=== PATIENT | male | born 1985 ===

== ENCOUNTER 2020-07-25 14:23 | Observation (INO) | payer SELFPAY ==
[2020-07-25] MEDS ORDERED: SODIUM CHLORIDE 0.9% 1000 ML IV SOLN IV ONE (14:39)
[2020-07-25] MEDS ORDERED: PIPERACIL/TAZOBACTA 4.5/NS 100 4.5 GM/100 ML VIAL IV ONE (14:40)
[2020-07-25] MEDS ORDERED: MORPHINE 4 MG/1 ML INJ IV ONE (14:41)
[2020-07-25] MEDS ORDERED: ONDANSETRON 4 MG/2 ML INJ IV ONE (14:41)
--- NOTE | 2020-07-25 14:45 | Emergency Department Report ---
<MOISÉS EDDY - Last Filed: 07/25/20 14:41> ED Abdominal Pain HPI - General Chief Complaint: Abdominal Pain Stated Complaint: APPENDICITIS Time Seen by Provider: 07/25/20 14:39 Source: patient, family Mode of arrival: Stretcher Limitations: Language Barrier - History of Present Illness Initial Comments: pts friend used for panamanian interpretation with the patients permission pt is a 35 yo male who presents to the ED with c/o RLQ abd pain that began three days ago and worsened today. he has associated diarrhea. he states he is also having pain in the right testicle. he denies any n/v, constipation, urinary symptoms, penile discharge. he states he has not been sexually active recently. no pmhx. no allergies to meds. no past surgical history. - Related Data Allergies Allergy/AdvReac Type Severity Reaction Status Date / Time No Known Allergies Allergy Verified 07/25/20 15:35 ED Review of Systems Comment: All other systems reviewed and negative ED Past Medical Hx - Past Medical History Previous Medical History?: No - Surgical History Past Surgical History?: No - Social History Smoking Status: Never Smoker Substance Use Type: Alcohol ED Physical Exam - General Limitations: Language Barrier General appearance: alert, in no apparent distress - Head Head exam: Present: atraumatic, normocephalic - Eye Eye exam: Present: normal appearance - ENT ENT exam: Present: mucous membranes moist - Respiratory Respiratory exam: Present: normal lung sounds bilaterally. Absent: respiratory distress, wheezes, rales, rhonchi, stridor, chest wall tenderness, accessory muscle use, decreased breath sounds, prolonged expiratory - Cardiovascular Cardiovascular Exam: Present: normal rhythm, tachycardia, normal heart sounds. Absent: systolic murmur, diastolic murmur, rubs, gallop - GI/Abdominal GI/Abdominal exam: Present: soft, distended (mildly), tenderness (RLQ), guarding (voluntary), normal bowel sounds. Absent: rebound, rigid - exam: Present: other (storage worker: Markus, tien, normal testicular lie, no scrotal edema, no erythema, no increased warmth, no induration, no palpable masses, no testicular ttp, no epididmyal ttp or edema, normal cremasteric reflex) - Neurological Exam Neurological exam: Present: alert, oriented X3 - Psychiatric Psychiatric exam: Present: normal affect, normal mood - Skin Skin exam: Present: warm, dry, intact ED Disposition Clinical Impression: Systemic inflammatory response syndrome, Acute abdominal pain in right lower quadrant, Acute perforated appendicitis, Bilateral hydrocele Testicular pain, unspecified Qualifiers: Laterality: right Qualified Code(s): N50.811 - Right testicular pain Disposition: OP ADMIT IP TO THIS HOSP Condition: Serious Referrals: PRIMARY CARE, [Primary Care Provider] - 3-5 Days <KALEY PETERSON - Last Filed: 07/25/20 17:06> ED Review of Systems ROS: Stated complaint: APPENDICITIS Other details as noted in HPI ED Course Vital Signs 07/25/20 07/25/20 07/25/20 14:29 15:34 15:46 Temperature 102.2 F H Pulse Rate 107 H 88 Respiratory 16 16 16 Rate Blood Pressure 159/85 Blood Pressure 138/80 [Left] O2 Sat by Pulse 98 99 97 Oximetry 07/25/20 16:57 Temperature Pulse Rate 84 Respiratory 16 Rate Blood Pressure Blood Pressure 130/75 [Left] O2 Sat by Pulse 97 Oximetry - Reevaluation(s) Reevaluation #1: 07/25/20 16:59 CT scan shows perforated appendicitis. Testicular ultrasound unremarkable. Patient resting comfortably. We have placed a page out to general surgery on-call, to discuss the patient's plan of care. Reevaluation #2: 07/25/20 17:04 Discussed history, physical, pertinent laboratory studies and imaging findings with general surgery on-call, Dr. Gannon. She will evaluate the patient shortly. As per this hospital's policy, procedure and protocol, patient typically gets admitted to the internal medicine service, with a surgical c onsult to follow. Therefore, this patient will be admitted to the internal medicine service. I discussed the patient's history, physical, pertinent laboratory studies and imaging findings with our internal medicine physician colleague, Dr. Crystal Lehman, Who will admit patient to the medical service. Patient updated on plan of care, and is amenable to admission/hospitalization ED Medical Decision Making - Lab Data Result diagrams: 07/25/20 14:55 07/25/20 14:55 Lab Results 07/25/20 07/25/20 07/25/20 Range/Units 14:55 14:55 14:55 WBC 11.0 (4.5-11.0) K/mm3 RBC 5.73 H (3.65-5.03) M/mm3 Hgb 17.0 H (11.8-15.2) gm/dl Hct 49.3 H (35.5-45.6) % MCV 86 (84-94) fl MCH 30 (28-32) pg MCHC 35 H (32-34) % RDW 13.8 (13.2-15.2) % Plt Count 196 (140-440) K/mm3 Lymph % (Auto) 4.9 L (13.4-35.0) % [place] % (Auto) 6.5 (0.0-7.3) % Eos % (Auto) 0.0 (0.0-4.3) % Baso % (Auto) 0.2 (0.0-1.8) % Lymph # (Auto) 0.5 L (1.2-5.4) K/mm3 [place] # (Auto) 0.7 (0.0-0.8) K/mm3 Eos # (Auto) 0.0 (0.0-0.4) K/mm3 Baso # (Auto) 0.0 (0.0-0.1) K/mm3 Seg Neutrophils % 88.4 H (40.0-70.0) % Seg Neutrophils # 9.7 H (1.8-7.7) K/mm3 Sodium 136 L (137-145) mmol/L Potassium 3.7 (3.6-5.0) mmol/L Chloride 97.6 L (98-107) mmol/L Carbon Dioxide 24 (22-30) mmol/L Anion Gap 18 mmol/L BUN 15 (9-20) mg/dL Creatinine 1.0 (0.8-1.3) mg/dL Estimated GFR > 60 ml/min BUN/Creatinine Ratio 15 % Glucose 112 H (75-100) mg/dL Lactic Acid 1.60 (0.7-2.0) mmol/L Calcium 9.4 (8.4-10.2) mg/dL Total Bilirubin 1.30 H (0.1-1.2) mg/dL AST 24 (5-40) units/L ALT 30 (7-56) units/L Alkaline Phosphatase 91 (35-129) units/L Total Creatine Kinase (55-170) units/L Total Protein 8.2 (6.3-8.2) g/dL Albumin 4.6 (3.9-5) g/dL Albumin/Globulin Ratio 1.3 % Urine Color (Yellow) Urine Turbidity (Clear) Urine pH (5.0-7.0) Ur Specific [place] (1.003-1.030) Urine Protein (Negative) mg/dL Urine Glucose (UA) (Negative) mg/dL Urine Ketones (Negative) mg/dL Urine Blood (Negative) Urine Nitrite (Negative) Urine Bilirubin (Negative) Urine Ictotest (Negative) Urine Urobilinogen (<2.0) mg/dL Ur Leukocyte Esterase (Negative) Urine WBC (Auto) (0.0-6.0) /HPF Urine RBC (Auto) (0.0-6.0) /HPF U Epithel Cells (Auto) (0-13.0) /HPF Urine Mucus /HPF 07/25/20 07/25/20 Range/Units 15:58 Unknown WBC (4.5-11.0) K/mm3 RBC (3.65-5.03) M/mm3 Hgb (11.8-15.2) gm/dl Hct (35.5-45.6) % MCV (84-94) fl MCH (28-32) pg MCHC (32-34) % RDW (13.2-15.2) % Plt Count (140-440) K/mm3 Lymph % (Auto) (13.4-35.0) % [place] % (Auto) (0.0-7.3) % Eos % (Auto) (0.0-4.3) % Baso % (Auto) (0.0-1.8) % Lymph # (Auto) (1.2-5.4) K/mm3 [place] # (Auto) (0.0-0.8) K/mm3 Eos # (Auto) (0.0-0.4) K/mm3 Baso # (Auto) (0.0-0.1) K/mm3 Seg Neutrophils % (40.0-70.0) % Seg Neutrophils # (1.8-7.7) K/mm3 Sodium (137-145) mmol/L Potassium (3.6-5.0) mmol/L Chloride (98-107) mmol/L Carbon Dioxide (22-30) mmol/L Anion Gap mmol/L BUN (9-20) mg/dL Creatinine (0.8-1.3) mg/dL Estimated GFR ml/min BUN/Creatinine Ratio % Glucose (75-100) mg/dL Lactic Acid (0.7-2.0) mmol/L Calcium (8.4-10.2) mg/dL Total Bilirubin (0.1-1.2) mg/dL AST (5-40) units/L ALT (7-56) units/L Alkaline Phosphatase (35-129) units/L Total Creatine Kinase 171 H (55-170) units/L Total Protein (6.3-8.2) g/dL Albumin (3.9-5) g/dL Albumin/Globulin Ratio % Urine Color [place] (Yellow) Urine Turbidity Slightly-cloudy (Clear) Urine pH 8.0 H (5.0-7.0) Ur Specific [place] 1.034 H (1.003-1.030) Urine Protein >500 (Negative) mg/dL Urine Glucose (UA) Neg (Negative) mg/dL Urine Ketones 20 (Negative) mg/dL Urine Blood Sm (Negative) Urine Nitrite Neg (Negative) Urine Bilirubin Sm (Negative) Urine Ictotest Negative (Negative) Urine Urobilinogen 4.0 (<2.0) mg/dL Ur Leukocyte Esterase Neg (Negative) Urine WBC (Auto) 3.0 (0.0-6.0) /HPF Urine RBC (Auto) > 182.0 (0.0-6.0) /HPF U Epithel Cells (Auto) < 1.0 (0-13.0) /HPF Urine Mucus 3+ /HPF Vital Signs 07/25/20 07/25/20 07/25/20 14:29 15:34 15:46 Temperature 102.2 F H Pulse Rate 107 H 88 Respiratory 16 16 16 Rate Blood Pressure 159/85 Blood Pressure 138/80 [Left] O2 Sat by Pulse 98 99 97 Oximetry 07/25/20 16:57 Temperature Pulse Rate 84 Respiratory 16 Rate Blood Pressure Blood Pressure 130/75 [Left] O2 Sat by Pulse 97 Oximetry - Radiology Data Radiology results: report reviewed, image reviewed CT abdomen pelvis w con INDICATION: Right testicular pain. COMPARISON: None TECHNIQUE: Abdominal and pelvic CT exam performed. All CT scans at this location are performed using CT dose reduction for ALARA by means of automated exposure control. FINDINGS: CT ABDOMEN and PELVIS: Lung Bases: No significant abnormality. Liver: No significant abnormality. Biliary: No significant abnormality. Spleen: No significant abnormality. Pancreas: No significant abnormality. Adrenals: No significant abnormality. Kidneys: No significant abno rmality. Lymphatics: No lymphadenopathy. Vasculature: No significant abnormality. Bowel: Appendicoliths with a dilated appendix and significant periappendiceal stranding. Free air is seen within the right lower quadrant adjacent to the appendix. No organized drainable collection.. Pelvis: No signifi cant abnormality. Osseous Structures: No aggressive osseous lesion. Additional Findings: None IMPRESSION: 1. Perforated appendicitis. No abscess. Signer Name: Jerlad Segovia MD Signed: 07/25/2020 3:47 PM Workstation Name: [id number] ULTRASOUND SCROTUM INDICATION / CLINICAL INFORMATION: right testicular pain. COMPARISON: None available. FINDINGS -- RIGHT TESTIS: Size = 5.3 x 2.2 x 3.8 cm. - Appearance: No significant abnormality. - Cyst or Mass: None. - Color Doppler Flow: No significant abnormality. EPIDIDYMIS: No significant abnormality. HYDROCELE: Tiny VARICOCELE: None demonstrated. FINDINGS -- LEFT TESTIS: Size = 5.1 x 2.1 x 3.4 cm. - Appearance: No significant abnormality. - Cyst or Mass: None. - Color Doppler Flow: No significant abnormality. EPIDIDYMIS: No significant abnormality. HYDROCELE: Tiny VARICOCELE: None demonstrated. ADDITIONAL FINDINGS: None. IMPRESSION: 1. No significant sonographic abnormality of the testicles. 2. Tiny bilateral hydroceles. Signer Name: Tian Ramires MD Signed: 07/25/2020 3:22 PM Workstation Name: [id number] Critical Care Time: Yes Critical care time in (mins) excluding proc time.: 35 Critical care attestation.: If time is entered above; I have spent that time in minutes in the direct care of this critically ill patient, excluding procedure time. ED Disposition Is pt being admited?: Yes Does the pt Need Aspirin: No
[2020-07-25] MEDS ORDERED: ACETAMINOPHEN 325 MG TAB PO ONE (14:46)
--- NOTE | 2020-07-25 14:50 | Event Note ---
Date of service: 07/25/20 Face to Face: For this encounter I have reviewed the PA/FUNCTIONAL CONSULTANT documentation, treatment plan, medical decision making, and I had face to face time with this patient. The patient was evaluated in the emergency department for symptoms described in the history of present illness. He/she was evaluated in the context of the global COVID-19 pandemic, which necessitated consideration that the patient might be at risk for infection with the virus that causes COVID-19. Institutional protocols and algorithms that pertain to the evaluation of patients at risk for COVID-19 are in a state of rapid change based on information released by regulatory bodies including the CDC and federal and state organizations. These policies and algorithms were followed during the patient's care in the emergency department. Please note that these policies, procedures and recommendations changed on a rapid basis. hop sorter: Energy Technician, Mr. Michael Schreiber. In addition, this provider is conversant in Italian. This is a 35-year-old gentleman presenting with suprapubic and right lower quadrant pain, fever, tachycardia, and complaint of testicular pain. Positive nausea, positive anorexia. On examination: Patient is febrile and tachycardic. Breath sounds are clear to auscultation bilaterally. Has suprapubic and bilateral quadrant lower abdominal tenderness. 2+ pulses noted in the bilateral upper and lower extremities. There is no palpable cord. negative Homans sign. Muscular compartments are soft. The pe lvis is stable. No facial droop. Tongue midline. Extraocular movements intact bilaterally. Facial sensation intact to light touch in V1, V2, V3 distribution bilaterally. 5 and a 5 strength in 4 extremities. Sensation intact to light touch in 4 extremities. There is normal testicular lie. There is normal cremasteric reflex. There is no testicular tenderness. There is no testicular swelling Suspicious for appendicitis, inflammatory bowel disease versus renal colic. Genitourinary exam benign. Patient will be treated according to the sepsis pathway, with fluids, pain medication, antibiotics, antipyretics, objective imaging studies to include CT scan of the abdomen pelvis, and testicular ultrasound. Have discussed this plan of care with the patient, who verbalized understanding, and is amenable to this plan of care. Reassess after diagnostics have resulted.
[2020-07-25 15:24] LABS: Bilirubin,Urine SM (Negative); Blood,Urine SM (Negative); Color,Urine Amber (Yellow); Mucus,Urine 3+ /HPF
[2020-07-25 15:26] LABS: Protein,Urine >500 mg/dL (Negative); RBC,Urine > 182.0 /HPF (0.0-6.0)
[2020-07-25 15:29] LABS: Basophils % (Auto) 0.2 % (0.0-1.8); Hematocrit 49.3 % (35.5-45.6); Lymphocytes # (Auto) 0.5 K/mm3 (1.2-5.4); Lymphocytes % (Auto) 4.9 % (13.4-35.0); Mean Corpuscular HGB Conc 35 % (32-34); Mean Corpuscular Volume 86 fl (84-94); Monocytes # (Auto) 0.7 K/mm3 (0.0-0.8); Monocytes % (Auto) 6.5 % (0.0-7.3); Platelet Count 196 K/mm3 (140-440); Red Blood Count 5.73 M/mm3 (3.65-5.03); Red Cell Distribution Width 13.8 % (13.2-15.2)
[2020-07-25 15:32] LABS: Ictotest,Urine Negative (Negative)
[2020-07-25 15:45] LABS: Alanine Aminotransferase 30 units/L (7-56); Albumin 4.6 g/dL (3.9-5); BUN/Creatinine Ratio 15; Blood Urea Nitrogen 15 mg/dL (9-20); Calcium 9.4 mg/dL (8.4-10.2); Hemolysis Index 3
--- NOTE | 2020-07-25 16:27 | Ultrasound Report ---
ULTRASOUND SCROTUM INDICATION / CLINICAL INFORMATION: right testicular pain. COMPARISON: None available. FINDINGS -- RIGHT TESTIS: Size = 5.3 x 2.2 x 3.8 cm. - Appearance: No significant abnormality. - Cyst or Mass: None. - Color Doppler Flow: No significant abnormality. EPIDIDYMIS: No significant abnormality. HYDROCELE: Tiny VARICOCELE: None demonstrated. FINDINGS -- LEFT TESTIS: Size = 5.1 x 2.1 x 3.4 cm. - Appearance: No significant abnormality. - Cyst or Mass: None. - Color Doppler Flow: No significant abnormality. EPIDIDYMIS: No significant abnormality. HYDROCELE: Tiny VARICOCELE: None demonstrated. ADDITIONAL FINDINGS: None. IMPRESSION: 1. No significant sonographic abnormality of the testicles. 2. Tiny bilateral hydroceles. Signer Name: Tian Ramires MD Signed: 07/25/2020 4:22 PM Workstation Name: [id number]
--- NOTE | 2020-07-25 16:51 | Cat Scan Report ---
CT abdomen pelvis w con INDICATION: Right testicular pain. COMPARISON: None TECHNIQUE: Abdominal and pelvic CT exam performed. All CT scans at this location are performed using CT dose reduction for ALARA by means of automated exposure control. FINDINGS: CT ABDOMEN and PELVIS: Lung Bases: No significant abnormality. Liver: No significant abnormality. Biliary: No significant abnormality. Spleen: No significant abnormality. Pancreas: No significant abnormality. Adrenals: No significant abnormality. Kidneys: No significant abnormality. Lymphatics: No lymphadenopathy. Vasculature: No significant abnormality. Bowel: Appendicoliths with a dilated appendix and significant periappendiceal stranding. Free air is seen within the right lower quadrant adjacent to the appendix. No organized drainable collection.. Pelvis: No significant abnormality. Osseous Structures: No aggressive osseous lesion. Additional Findings: None IMPRESSION: 1. Perforated appendicitis. No abscess. Signer Name: Jerald Segovia MD Signed: 07/25/2020 4:47 PM Workstation Name: [id number]
[2020-07-25] MEDS ORDERED: ONDANSETRON 4 MG/2 ML INJ IV PRN ×2 (17:19→21:30)
[2020-07-25] MEDS ORDERED: HYDROmorphone 1 MG/1 ML INJ IV PRN ×3 (17:19→21:30)
[2020-07-25] MEDS ORDERED: SUCCINYLCHOLINE CHLORIDE 200 MG/10 ML INJ MDV ONE (17:47)
[2020-07-25] MEDS ORDERED: propofoL 200 MG/20 ML VIAL IV ONE (17:48)
[2020-07-25] MEDS ORDERED: LIDOCAINE MPF (2%) 20 MG/1 ML VIAL 5 ML ONE (17:48)
[2020-07-25] MEDS ORDERED: fentaNYL 100 MCG/2 ML INJ ONE (17:49)
[2020-07-25] MEDS ORDERED: KETOROLAC 30 MG/1 ML INJ ONE (17:51)
--- NOTE | 2020-07-25 17:58 | Consultation ---
History of Present Illness Consult date: 07/25/20 Reason for consult: abdominal pain - History of present illness History of present illness: 35 year old male presented to ED with 3 day hx of worsening abdominal pain. It started on the right side and was 10/10 and denies nausea and vomiting. He has never had this before and had a CT scan that showed perforated appendicitis. He also complains of right testicular pain that started around the time of the abdominal pain. Past History Past Medical History: No medical history Past Surgical History: No surgical history Medications and Allergies Allergies Allergy/AdvReac Type Severity Reaction Status Date / Time No Known Allergies Allergy Verified 07/25/20 15:35 Home Medications Medication Instructions Recorded Confirmed Last Taken Type No Known Home Medications [No 07/25/20 07/25/20 Unknown History Reported Home Medications] Active Meds: Active Medications Hydromorphone HCl (Hydromorphone 1 Mg/1 Ml Inj) 0.5 mg IV Q10MIN PRN PRN Reason: Pain , Severe (7-10) Stop: 07/26/20 17:18 Hydromorphone HCl (Hydromorphone 1 Mg/1 Ml Inj) 0.25 mg IV Q10MIN PRN PRN Reason: Pain, Moderate (4-6) Stop: 07/26/20 17:18 Ondansetron HCl (Ondansetron 4 Mg/2 Ml Inj) 4 mg IV ONCE PRN PRN Reason: Nausea And Vomiting Review of Systems - Constitutional fever, poor appetite - Cardiovascular no chest pain - Respiratory no cough - Gastrointestinal abdominal pain, no nausea, no vomiting - Genitourinary testicular pain, no dysuria Exam Vital Signs Temp Pulse Resp BP Pulse Ox 102.2 F H 107 H 16 159/85 98 07/25/20 14:29 07/25/20 14:29 07/25/20 14:29 07/25/20 14:29 07/25/20 14:29 - General physical appearance Positive: well developed, well nourished - Respiratory Positive: normal expansion, normal respiratory effort - Cardiovascular Heart Sounds: Present: S1 & S2 - Abdomen Abdomen: Present: soft, other (tender to palpation RLQ, no guarding or rebound). Absent: distended Results - Labs 07/25/20 14:55 07/25/20 14:55 Abnormal lab results 07/25/20 07/25/20 07/25/20 Range/Units 14:55 14:55 15:58 RBC 5.73 H (3.65-5.03) M/mm3 Hgb 17.0 H (11.8-15.2) gm/dl Hct 49.3 H (35.5-45.6) % MCHC 35 H (32-34) % Lymph % (Auto) 4.9 L (13.4-35.0) % Lymph # (Auto) 0.5 L (1.2-5.4) K/mm3 Seg Neutrophils % 88.4 H (40.0-70.0) % Seg Neutrophils # 9.7 H (1.8-7.7) K/mm3 Sodium 136 L (137-145) mmol/L Chloride 97.6 L (98-107) mmol/L Glucose 112 H (75-100) mg/dL Total Bilirubin 1.30 H (0.1-1.2) mg/dL Total Creatine Kinase 171 H (55-170) units/L Urine pH (5.0-7.0) Ur Specific [place] (1.003-1.030) 07/25/20 Range/Units Unknown RBC (3.65-5.03) M/mm3 Hgb (11.8-15.2) gm/dl Hct (35.5-45.6) % MCHC (32-34) % Lymph % (Auto) (13.4-35.0) % Lymph # (Auto) (1.2-5.4) K/mm3 Seg Neutrophils % (40.0-70.0) % Seg Neutrophils # (1.8-7.7) K/mm3 Sodium (137-145) mmol/L Chloride (98-107) mmol/L Glucose (75-100) mg/dL Total Bilirubin (0.1-1.2) mg/dL Total Creatine Kinase (55-170) units/L Urine pH 8.0 H (5.0-7.0) Ur Specific [place] 1.034 H (1.003-1.030) Diabetes panel 07/25/20 Range/Units 14:55 Sodium 136 L (137-145) mmol/L Potassium 3.7 (3.6-5.0) mmol/L Chloride 97.6 L (98-107) mmol/L Carbon Dioxide 24 (22-30) mmol/L BUN 15 (9-20) mg/dL Creatinine 1.0 (0.8-1.3) mg/dL Glucose 112 H (75-100) mg/dL Calcium 9.4 (8.4-10.2) mg/dL AST 24 (5-40) units/L ALT 30 (7-56) units/L Alkaline Phosphatase 91 (35-129) units/L Total Protein 8.2 (6.3-8.2) g/dL Albumin 4.6 (3.9-5) g/dL Calcium panel 07/25/20 Range/Units 14:55 Calcium 9.4 (8.4-10.2) mg/dL Albumin 4.6 (3.9-5) g/dL Pituitary panel 07/25/20 Range/Units 14:55 Sodium 136 L (137-145) mmol/L Potassium 3.7 (3.6-5.0) mmol/L Chloride 97.6 L (98-107) mmol/L Carbon Dioxide 24 (22-30) mmol/L BUN 15 (9-20) mg/dL Creatinine 1.0 (0.8-1.3) mg/dL Glucose 112 H (75-100) mg/dL Calcium 9.4 (8.4-10.2) mg/dL Adrenal panel 07/25/20 Range/Units 14:55 Sodium 136 L (137-145) mmol/L Potassium 3.7 (3.6-5.0) mmol/L Chloride 97.6 L (98-107) mmol/L Carbon Dioxide 24 (22-30) mmol/L BUN 15 (9-20) mg/dL Creatinine 1.0 (0.8-1.3) mg/dL Glucose 112 H (75-100) mg/dL Calcium 9.4 (8.4-10.2) mg/dL Total Bilirubin 1.30 H (0.1-1.2) mg/dL AST 24 (5-40) units/L ALT 30 (7-56) units/L Alkaline Phosphatase 91 (35-129) units/L Total Protein 8.2 (6.3-8.2) g/dL Albumin 4.6 (3.9-5) g/dL - Imaging CT scan - abdomen: report reviewed, image reviewed CT scan - pelvis: report reviewed, image reviewed Assessment and Plan 35 year old male with perforated appendicitis. Febrile with resolution of ta chycardia after IV hydration. consent obtained with bilingual interpreter for raimundo crane. Zosyn was started. If pt does well may be able to go home as early as tomorrow.
--- NOTE | 2020-07-25 18:07 | Anesthesia Day of Surgery ---
Anesthesia Day of Surgery - Day of Surgery Patient Examined: Yes Patient H&P Reviewed: Yes Patient is NPO: Yes
--- NOTE | 2020-07-25 18:08 | Anesthesia Consultation ---
Anesthesia Consult and Med Hx Date of service: 07/25/20 - Airway Anesthetic Teeth Evaluation: Good ROM Head & Neck: Adequate Mental/Hyoid Distance: Adequate Mallampati Class: Class I Intubation Access Assessment: Good - Pre-Operative Health Status ASA Pre-Surgery Classification: ASA1, Emergency Proposed Anesthetic Plan: General - Pulmonary Hx Smoking: No - Cardiovascular System Hx Hypertension: No - Endocrine Hx Renal Disease: No Hx Liver Disease: No Hx Non-Insulin Dependent Diabetes: No - Other Systems Hx Alcohol Use: Yes Hx Obesity: No
[2020-07-25] MEDS ORDERED: LACTATED RINGERS 1,000 ML ONE (18:21)
[2020-07-25] MEDS ORDERED: ROCURONIUM 50 MG/5 ML INJ IV ONE (18:27)
[2020-07-25] MEDS ORDERED: NEOSTIGMINE 10MG/10 ML INJ MDV ONE (18:30)
[2020-07-25] MEDS ORDERED: ONDANSETRON 4 MG/2 ML INJ ONE (18:30)
[2020-07-25] MEDS ORDERED: GLYCOPYRROLATE 0.4 MG/2 ML INJ ONE (18:30)
[2020-07-25 18:31] LABS: INR 1.15 (0.87-1.13)
[2020-07-25 18:32] LABS: Partial Thromboplastin Time 35.4 Sec. (24.2-36.6)
[2020-07-25] MEDS ORDERED: dexAMETHasone 20 MG/5 ML VIAL ONE (18:35)
[2020-07-25] MEDS ORDERED: BUPIVACAINE/PF (0.5%) 5 MG/1 ML 30 ML VIAL INFILTRATI ONE (19:07)
[2020-07-25] MEDS ORDERED: LIDOCAINE (1%) 10 MG/1 ML VIAL 20 ML MDV INFILTRATI ONE (19:07)
[2020-07-25] MEDS ORDERED: SODIUM CHLORIDE 0.9% IRR 1,500 ML BOTTLE IR ONE (19:07)
[2020-07-25] MEDS ORDERED: SODIUM CHLORIDE 0.9% IRRIG SOLN 2000 ML IR ONE (19:08)
--- NOTE | 2020-07-25 20:01 | Operative Report ---
Operative Report Operative Report: Dates of Service: 07/25/2019 Primary Surgeon: Luis Gannon MD Assisted by: Amberly Gamez DO Procedure: Laparoscopic Appendectomy with drain placement Anesthesia: GETA with local Pre-Operative Diagnosis: perforated acute appendicitis Post-Operative Diagnosis: Same Indications for Procedure: 35 year old male presented to ED with a 3 day hx of worsening abdominal pain. CT scan showed perforated appendicitis. Pt signed informed consent with the help of a Divehi speaking sales service rep. Description of Procedure(s): The patient was brought to the operating room and underwent general anesthesia after lower extremity SCD were placed. The abdomen was prepped and draped in the standard fashion after a metz was placed under sterile technique. IV antibiotics were given prior to time out in the ED. Using a veress needle via a stab incision in the umbilicus, the abdomen was insuflated to a pressure of 15mmHg. Using optivew technique, a 5mm trocar was placed just superior and to the left of the umbilicus. There was no gross injury noted to any intra-abdominal structures. After which working trocars were placed under direct visualization. A 12 mm trocar was placed in left mid abdomen, and a 5 mm trocar was inserted in the suprapubic area. The patient was placed in slight Trendelenburg position and tilted towards his left side. The cecum was identified and mobilized, as well as the terminal ileum. There was noted to be a perforation in the appendix in the proximal third of the appendix. No carol pus was noted but there was fibrinous material consistent with an abscess cavity along the base of the appendix on the lateral wall. The base of the appendix was noted to be retrocecal. The mesoappendix was transected with the LigaSure. The appendix was then taken at its base with a white load on a laparoscopic stapler. One the first stable fire was made, there was noted to be a significant amount of appendix remaining buried along the lateral abdominal wall and into the cecum. The appendiceal stump was carefully dissected free and was transected free at its true base with another staple fire. The staple line was inspected and found to be hemostatically sound and secure. There was minimal irrigation of the right lower quadrant. The appendix was placed in Endo Catch bag. It was then retrieved via the 12 mm trocar. A 19Fr drain was placed into the pelvis and RLQ and exited out of the supra-pubic port site. The fascia was then closed using a #1 PDS and a suture passer device. Trocars removed under direct visualization. The insufflation was then terminated. The skin incisions were closed using 4-0 Monocryl sutures. All the wounds dressed with dermabond. The drain was secured with nylon followed by a dressing. The patient tolerated the procedure well, was extubated and taken to the recovery room in satisfactory condition. Specimen: perforated appendix, additional more proximal segment of appendix Complications: none immediate EBl: minimal Findings: as above
--- NOTE | 2020-07-25 20:10 | Post Anesthesia Evaluation ---
- Post Anesthesia Evaluation Patient Participated: Yes Airway Patent: Yes Stable Respiratory Function: Yes Nausea/Vomiting: No Temp > 96.8F: Yes Pain Manageable: Yes Adequeate Hydration: Yes Anesthesia Complications: No Block Receding Appropriately: Not Applicable Patient on Ventilator: No Other Comments: pt a+o x3. denies pain. no distres noted. resting comformtable in bed. awaiting transfer to floor.
[2020-07-25] MEDS ORDERED: SODIUM CHLORIDE 0.9% 1000 ML 1,000 ML IV SCH (20:15)
--- NOTE | 2020-07-25 21:02 | History and Physical Report ---
History of Present Illness Date of examination: 07/25/20 Date of admission: 07/25/20 17:06 Chief complaint: Acute abdominal pain for 3 days with worsening since a.m. History of present illness: 35 yo Arabic-speaking male with no significant past medical history presents to the ED with c/o RLQ abd pain that began three days ago and worsened today. He has associated diarrhea. he states he is also having pain in the right testicle. he denies any n/v, constipation, urinary symptoms, penile discharge. he states he has not been sexually active recently. no pmhx. no allergies to meds. no past surgical history. Pain is about 10 on a scale of 1-10. Confined to the right lower quadrant and radiating to the right testicle. No fever. No chills. - Past Medical History Previous Medical History?: No - Surgical History Past Surgical History?: No - Social History Smoking Status: Never Smoker Substance Use Type: Alcohol Family history noncontributory Review of Systems GI severe right lower quadrant pain and diarrhea pain is 10 on the sliding scale of 1-10 Constitutional no weight loss or weight gain no fever or chills HEENT no sore throat no post nasal drip no diplopia Neck no neck stiffness no lymph gland enlargement Chest and lungs no shortness of breath cough or wheezing CVS no chest pain no diaphoresis no palpitations Genitourinary system no dysuria no flank pain Musculoskeletal system no muscle pains no joint pains [employer] no syncope no seizures Skin no rash no itching Psychiatric no depression no homicidal or suicidal tendencies Hematologic no lymphedema or bruising Endocrine no polydipsia no polyuria no cold intolerance no heat intolerance Past History Past Medical History: No medical history Past Surgical History: No surgical history Medications and Allergies Allergies Allergy/AdvReac Type Severity Reaction Status Date / Time No Known Allergies Allergy Verified 07/25/20 15:35 Home Medications Medication Instructions Recorded Confirmed Last Taken Type No Known Home Medications [No 07/25/20 07/25/20 Unknown History Reported Home Medications] Active Meds: Active Medications Hydromorphone HCl (Hydromorphone 1 Mg/1 Ml Inj) 0.5 mg IV Q10MIN PRN PRN Reason: Pain , Severe (7-10) Stop: 07/26/20 17:18 Hydromorphone HCl (Hydromorphone 1 Mg/1 Ml Inj) 0.25 mg IV Q10MIN PRN PRN Reason: Pain, Moderate (4-6) Stop: 07/26/20 17:18 Sodium Chloride (Nacl 0.9% 1000 Ml) 1,000 mls @ 125 mls/hr IV DIRECT ALEJO Ondansetron HCl (Ondansetron 4 Mg/2 Ml Inj) 4 mg IV ONCE PRN PRN Reason: Nausea And Vomiting Exam - Constitutional Vitals: Temp Pulse Resp BP Pulse Ox 99.4 F 76 23 122/71 94 07/25/20 20:25 07/25/20 20:25 07/25/20 20:25 07/25/20 20:25 07/25/20 20:25 General appearance: Present: severe distress, well-nourished - EENT Eyes: Present: PERRL ENT: hearing intact, clear oral mucosa - Neck Neck: Present: supple, normal ROM - Respiratory Respiratory effort: normal Respiratory: bilateral: CTA - Cardiovascular Heart rate: 90 Rhythm: regular Heart Sounds: Present: S1 & S2. Absent: rub, click - Extremities Extremities: pulses symmetrical, No edema Peripheral Pulses: within normal limits - Abdominal General gastrointestinal: Present: soft, tender, non-distended, normal bowel sounds Localized gastrointestinal: tender: RLQ, guarding: RLQ, rebound: RLQ Male genitourinary: Present: normal - Integumentary Integumentary: Present: clear, warm, dry - Musculoskeletal Musculoskeletal: gait normal, strength equal bilaterally - Psychiatric Psychiatric: appropriate mood/affect, intact judgment & insight - Neurologic Neurologic: CNII-XII intact, moves all extremities Results - Labs CBC & Chem 7: 07/25/20 14:55 07/25/20 14:55 Labs: Laboratory Last Values WBC 11.0 K/mm3 (4.5-11.0) 07/25/20 14:55 RBC 5.73 M/mm3 (3.65-5.03) H 07/25/20 14:55 Hgb 17.0 gm/dl (11.8-15.2) H 07/25/20 14:55 Hct 49.3 % (35.5-45.6) H 07/25/20 14:55 MCV 86 fl (84-94) 07/25/20 14:55 MCH 30 pg (28-32) 07/25/20 14:55 MCHC 35 % (32-34) H 07/25/20 14:55 RDW 13.8 % (13.2-15.2) 07/25/20 14:55 Plt Count 196 K/mm3 (140-440) 07/25/20 14:55 Lymph % (Auto) 4.9 % (13.4-35.0) L 07/25/20 14:55 [place] % (Auto) 6.5 % (0.0-7.3) 07/25/20 14:55 Eos % (Auto) 0.0 % (0.0-4.3) 07/25/20 14:55 Baso % (Auto) 0.2 % (0.0-1.8) 07/25/20 14:55 Lymph # (Auto) 0.5 K/mm3 (1.2-5.4) L 07/25/20 14:55 [place] # (Auto) 0.7 K/mm3 (0.0-0.8) 07/25/20 14:55 Eos # (Auto) 0.0 K/mm3 (0.0-0.4) 07/25/20 14:55 Baso # (Auto) 0.0 K/mm3 (0.0-0.1) 07/25/20 14:55 Seg Neutrophils % 88.4 % (40.0-70.0) H 07/25/20 14:55 Seg Neutrophils # 9.7 K/mm3 (1.8-7.7) H 07/25/20 14:55 PT 14.7 Sec. (12.2-14.9) 07/25/20 17:33 INR 1.15 (0.87-1.13) H 07/25/20 17:33 APTT 35.4 Sec. (24.2-36.6) 07/25/20 17:33 Sodium 136 mmol/L (137-145) L 07/25/20 14:55 Potassium 3.7 mmol/L (3.6-5.0) 07/25/20 14:55 Chloride 97.6 mmol/L (98-107) L 07/25/20 14:55 Carbon Dioxide 24 mmol/L (22-30) 07/25/20 14:55 Anion Gap 18 mmol/L 07/25/20 14:55 BUN 15 mg/dL (9-20) 07/25/20 14:55 Creatinine 1.0 mg/dL (0.8-1.3) 07/25/20 14:55 Estimated GFR > 60 ml/min 07/25/20 14:55 BUN/Creatinine Ratio 15 % 07/25/20 14:55 Glucose 112 mg/dL (75-100) H 07/25/20 14:55 Lactic Acid 1.60 mmol/L (0.7-2.0) 07/25/20 14:55 Calcium 9.4 mg/dL (8.4-10.2) 07/25/20 14:55 Total Bilirubin 1.30 mg/dL (0.1-1.2) H 07/25/20 14:55 AST 24 units/L (5-40) 07/25/20 14:55 ALT 30 units/L (7-56) 07/25/20 14:55 Alkaline Phosphatase 91 units/L (35-129) 07/25/20 14:55 Total Creatine Kinase 171 units/L (55-170) H 07/25/20 15:58 Total Protein 8.2 g/dL (6.3-8.2) 07/25/20 14:55 Albumin 4.6 g/dL (3.9-5) 07/25/20 14:55 Albumin/Globulin Ratio 1.3 % 07/25/20 14:55 Urine Color [place] (Yellow) 07/25/20 Unknown Urine Turbidity Slightly-cloudy (Clear) 07/25/20 Unknown Urine pH 8.0 (5.0-7.0) H 07/25/20 Unknown Ur Specific [place] 1.034 (1.003-1.030) H 07/25/20 Unknown Urine Protein >500 mg/dL (Negative) 07/25/20 Unknown Urine Glucose (UA) Neg mg/dL (Negative) 07/25/20 Unknown Urine Ketones 20 mg/dL (Negative) 07/25/20 Unknown Urine Blood Sm (Negative) 07/25/20 Unknown Urine Nitrite Neg (Negative) 07/25/20 Unknown Urine Bilirubin Sm (Negative) 07/25/20 Unknown Urine Ictotest Negative (Negative) 07/25/20 Unknown Urine Urobilinogen 4.0 mg/dL (<2.0) 07/25/20 Unknown Ur Leukocyte Esterase Neg (Negative) 07/25/20 Unknown Urine WBC (Auto) 3.0 /HPF (0.0-6.0) 07/25/20 Unknown Urine RBC (Auto) > 182.0 /HPF (0.0-6.0) 07/25/20 Unknown U Epithel Cells (Auto) < 1.0 /HPF (0-13.0) 07/25/20 Unknown Urine Mucus 3+ /HPF 07/25/20 Unknown Blood Type B POSITIVE 07/25/20 17:33 Antibody Screen Negative 07/25/20 17:33 Microbiology: Microbiology 07/25/20 14:55 Peripheral/Venous Blood Culture - Preliminary Culture in Progress 07/25/20 14:49 Peripheral/Venous Blood Culture - Preliminary Culture in Progress - Imaging and Cardiology Abdominal x-ray: report reviewed CT scan - abdomen: report reviewed Imaging and Cardiology: CT abdomen Bowel: Appendicoliths with a dilated appendix and significant periappendiceal stranding. Free air is seen within the right lower quadrant adjacent to the appendix. No organized drainable collection.. Pelvis: No significant abnormality. Osseous Structures: No aggressive osseous lesion. Additional Findings: None IMPRESSION: 1. Perforated appendicitis. No abscess. Testicular ultrasound IMPRESSION: 1. No significant sonographic abnormality of the testicles. 2. Tiny bilateral hydroceles. Assessment and Plan Advance Directives: Yes (Full code) VTE prophylaxis?: Chemical Plan of care discussed with patient/family: Yes - Patient Problems (1) Systemic inflammatory response syndrome Current Visit: Yes Status: Acute Plan to address problem: Patient has temperature 102.2 and heart rate of 102 consistent with Sirs IV fluids IV antibiotics (2) Acute perforated appendicitis Current Visit: Yes Status: Acute Plan to address problem: Patient going in for emergent surgery Patient started on broad-spectrum antibiotics Surgery consult appreciated (3) Testicular pain, unspecified Current Visit: Yes Status: Acute Qualifiers: Laterality: right Qualified Code(s): N50.811 - Right testicular pain Plan to address problem: Probably radiating pain from appendicitis (4) Polycythemia due to fall in plasma volume Current Visit: Yes Status: Acute Plan to address problem: IV fluids for now and recheck the CBC in the morning (5) Volume depletion Current Visit: Yes Status: Acute Plan to address problem: Urine specific gravity is 1.034 IV fluids for the time being Recheck CBC and BMP in a.m. (6) Hyponatremia Current Visit: Yes Status: Acute Plan to address problem: IV normal saline for now Recheck sodium in the morning (7) DVT prophylaxis Current Visit: Yes Status: Acute Plan to address problem: SCDs and GI prophylaxis
[2020-07-25] MEDS ORDERED: ACETAMINOPHEN 325 MG TAB PO PRN (21:30)
[2020-07-25] MEDS ORDERED: METOCLOPRAMIDE 10 MG/2 ML INJ IV PRN (21:30)
[2020-07-25] MEDS: PIPERACIL/TAZOBACTA 4.5/NS 100 4.5 GM/100 ML VIAL IV SCH (22:00)
[2020-07-25] MEDS: FAMOTIDINE 20 MG/2 ML INJ IV SCH (22:00)
[2020-07-26] MEDS: PIPERACIL/TAZOBACTA 4.5/NS 100 4.5 GM/100 ML VIAL IV SCH ×3 (06:17→23:06)
[2020-07-26 06:21] LABS: Basophils % (Auto) 0.1 % (0.0-1.8); Hematocrit 41.2 % (35.5-45.6); Hemoglobin 13.8 gm/dl (11.8-15.2); Lymphocytes # (Auto) 0.5 K/mm3 (1.2-5.4); Lymphocytes % (Auto) 6.3 % (13.4-35.0); Mean Corpuscular HGB Conc 34 % (32-34); Mean Corpuscular Volume 88 fl (84-94); Monocytes # (Auto) 0.4 K/mm3 (0.0-0.8); Monocytes % (Auto) 5.2 % (0.0-7.3); Platelet Count 167 K/mm3 (140-440); Red Blood Count 4.68 M/mm3 (3.65-5.03); Red Cell Distribution Width 14.1 % (13.2-15.2)
[2020-07-26 06:34] LABS: Alanine Aminotransferase 21 units/L (7-56); Albumin 3.3 g/dL (3.9-5); BUN/Creatinine Ratio 15; Blood Urea Nitrogen 15 mg/dL (9-20); Calcium 8.2 mg/dL (8.4-10.2); Hemolysis Index 3
[2020-07-26] MEDS ORDERED: ONDANSETRON 4 MG/2 ML INJ IV PRN (06:55)
[2020-07-26] MEDS ORDERED: MORPHINE 2 MG/1 ML INJ IV PRN (06:55)
[2020-07-26] MEDS ORDERED: PIPERACIL/TAZOBACTA 4.5/NS 100 4.5 GM/100 ML VIAL IV SCH (06:55)
[2020-07-26] MEDS ORDERED: ACETAMINOPHEN 325 MG TAB PO PRN (06:55)
[2020-07-26] MEDS ORDERED: oxyCODONE /ACETAMINOPHEN 5-325MG TAB PO PRN (07:30)
[2020-07-26 07:36] LABS: Hematocrit 39.6 % (35.5-45.6); Hemoglobin 13.4 gm/dl (11.8-15.2); Lymphocytes # (Auto) 0.6 K/mm3 (1.2-5.4); Lymphocytes % (Auto) 7.1 % (13.4-35.0); Mean Corpuscular HGB Conc 34 % (32-34); Mean Corpuscular Volume 87 fl (84-94); Monocytes # (Auto) 0.5 K/mm3 (0.0-0.8); Monocytes % (Auto) 5.5 % (0.0-7.3); Platelet Count 160 K/mm3 (140-440); Red Blood Count 4.53 M/mm3 (3.65-5.03); Red Cell Distribution Width 14.2 % (13.2-15.2)
[2020-07-26 07:51] LABS: BUN/Creatinine Ratio 15; Blood Urea Nitrogen 15 mg/dL (9-20); Calcium 7.9 mg/dL (8.4-10.2); Hemolysis Index 9
[2020-07-26] MEDS: KETOROLAC 30 MG/1 ML INJ IV SCH ×3 (09:01→23:37)
[2020-07-26] MEDS: FAMOTIDINE 20 MG/2 ML INJ IV SCH ×2 (09:01→20:00)
--- NOTE | 2020-07-26 09:57 | Progress Note ---
Assessment and Plan POD#1 s/p lap appy for perforated appendicitis. Afebrile and stable. will advance diet this evening. Will continue abx and d/c tomorrow after removing the drain. Will need to complete 5 day course of abx upon discharge. Subjective Date of service: 07/26/20 Patient Reports: Positive: no new complaints, pain is less, tolerating liquids well (no acute events overnight. Pt says that his pain is improved and he feels better than yesterday. ) Objective Vital Signs - 12hr 07/26/20 07/26/20 05:59 07:34 Temperature 98.0 F 97.4 F L Pulse Rate 57 L 65 Respiratory 18 19 Rate Blood Pressure 110/46 104/57 O2 Sat by Pulse 98 99 Oximetry - General physical appearance well developed, well nourished, no distress, no pain - Respiratory normal expansion, normal respiratory effort - Abdomen soft, not distended, other (incisions c/d/i, appropriatley tender to palaption, AYALA drain with serous fluid) - Labs 07/26/20 07:20 07/26/20 07:20 Diabetes panel 07/25/20 07/26/20 07/26/20 Range/Units 14:55 04:54 07:20 Sodium 136 L 139 135 L (137-145) mmol/L Potassium 3.7 4.1 3.9 (3.6-5.0) mmol/L Chloride 97.6 L 103.1 103.2 (98-107) mmol/L Carbon Dioxide 24 26 24 (22-30) mmol/L BUN 15 15 15 (9-20) mg/dL Creatinine 1.0 1.0 1.0 (0.8-1.3) mg/dL Glucose 112 H 144 H 164 H (75-100) mg/dL Calcium 9.4 8.2 L 7.9 L (8.4-10.2) mg/dL AST 24 18 (5-40) units/L ALT 30 21 (7-56) units/L Alkaline Phosphatase 91 64 (35-129) units/L Total Protein 8.2 6.3 D (6.3-8.2) g/dL Albumin 4.6 3.3 L (3.9-5) g/dL Calcium panel 07/25/20 07/26/20 07/26/20 Range/Units 14:55 04:54 07:20 Calcium 9.4 8.2 L 7.9 L (8.4-10.2) mg/dL Albumin 4.6 3.3 L (3.9-5) g/dL Pituitary panel 07/25/20 07/26/20 07/26/20 Range/Units 14:55 04:54 07:20 Sodium 136 L 139 135 L (137-145) mmol/L Potassium 3.7 4.1 3.9 (3.6-5.0) mmol/L Chloride 97.6 L 103.1 103.2 (98-107) mmol/L Carbon Dioxide 24 26 24 (22-30) mmol/L BUN 15 15 15 (9-20) mg/dL Creatinine 1.0 1.0 1.0 (0.8-1.3) mg/dL Glucose 112 H 144 H 164 H (75-100) mg/dL Calcium 9.4 8.2 L 7.9 L (8.4-10.2) mg/dL Adrenal panel 07/25/20 07/26/20 07/26/20 Range/Units 14:55 04:54 07:20 Sodium 136 L 139 135 L (137-145) mmol/L Potassium 3.7 4.1 3.9 (3.6-5.0) mmol/L Chloride 97.6 L 103.1 103.2 (98-107) mmol/L Carbon Dioxide 24 26 24 (22-30) mmol/L BUN 15 15 15 (9-20) mg/dL Creatinine 1.0 1.0 1.0 (0.8-1.3) mg/dL Glucose 112 H 144 H 164 H (75-100) mg/dL Calcium 9.4 8.2 L 7.9 L (8.4-10.2) mg/dL Total Bilirubin 1.30 H 1.30 H (0.1-1.2) mg/dL AST 24 18 (5-40) units/L ALT 30 21 (7-56) units/L Alkaline Phosphatase 91 64 (35-129) units/L Total Protein 8.2 6.3 D (6.3-8.2) g/dL Albumin 4.6 3.3 L (3.9-5) g/dL
--- NOTE | 2020-07-26 11:17 | Progress Note ---
Assessment and Plan Assessment and plan: 35 yo [place]-speaking male with no significant past medical history presents to the ED with c/o RLQ abd pain that began three days ago and worsened today. He has associated diarrhea. he states he is also having pain in the right testicle. he denies any n/v, constipation, urinary symptoms, penile discharge. he states he has not been sexually active recently. no pmhx. no allergies to meds. no past surgical history. Pain is about 10 on a scale of 1-10. Confined to the right lower quadrant and radiating to the right testicle. No fever. No chills. (1) Systemic inflammatory response syndrome Current Visit: Yes Status: Acute Plan to address problem: Patient has temperature 102.2 and heart rate of 102 consistent with Sirs IV fluids IV antibiotics. CBC in the morning (2) Acute perforated appendicitis Current Visit: Yes Status: Acute Plan to address problem: Patient is status post lap appendectomy for perforated appendicitis Patient started on broad-spectrum antibiotics Surgery follow-up (3) Testicular pain, unspecified Current Visit: Yes Status: Acute Qualifiers: Laterality: right Qualified Code(s): N50.811 - Right testicular pain Plan to address problem: Probably radiating pain from appendicitis (4) Polycythemia due to fall in plasma volume Current Visit: Yes Status: Acute Plan to address problem: IV fluids for now and recheck the CBC in the morning (5) Volume depletion Current Visit: Yes Status: Acute Plan to address problem: Urine specific gravity is 1.034 IV fluids for the time being Recheck CBC and BMP in a.m. (6) Hyponatremia Current Visit: Yes Status: Acute Plan to address problem: IV normal saline for now Recheck sodium in the morning (7) DVT prophylaxis Current Visit: Yes Status: Acute Plan to address problem: SCDs and GI prophylaxis Daily course 07/26/20 Patient is seen and examined. Patient is status post laparoscopic appendectomy for perforated appendicitis. Patient is doing good. Patient is seen and evaluated by surgeon. Will advance the diet this evening. Continue current management and antibiotic. Discharge planning in the morning when cleared by surgery. Recheck CBC in the morning History Interval history: Patient is seen and examined. Patient is status post laparoscopic appendectomy for perforated appendicitis. Patient is doing good. Patient is seen and evaluated by surgeon. Will advance the diet this evening. Continue current management and antibiotic. Discharge planning in the morning when cleared by surgery. Recheck CBC in the morning Hospitalist Physical - Constitutional Vitals: Temp Pulse Resp BP Pulse Ox 97.4 F L 65 19 104/57 99 07/26/20 07:34 07/26/20 07:34 07/26/20 07:34 07/26/20 07:34 07/26/20 07:34 General appearance: Present: no acute distress, severe distress, well-nourished - EENT Eyes: Present: PERRL ENT: hearing intact - Neck Neck: Present: supple - Respiratory Respiratory effort: normal - Cardiovascular Rhythm: regular Heart Sounds: Present: S1 & S2 - Extremities Extremities: no ischemia Peripheral Pulses: within normal limits - Abdominal General gastrointestinal: deferred - Integumentary Integumentary: Present: clear - Psychiatric Psychiatric: appropriate mood/affect, intact judgment & insight, memory intact - Neurologic Neurologic: CNII-XII intact, focal deficits Results - Labs CBC & Chem 7: 07/26/20 07:20 07/26/20 07:20 Labs: Laboratory Last Values WBC 8.3 K/mm3 (4.5-11.0) 07/26/20 07:20 RBC 4.53 M/mm3 (3.65-5.03) 07/26/20 07:20 Hgb 13.4 gm/dl (11.8-15.2) 07/26/20 07:20 Hct 39.6 % (35.5-45.6) 07/26/20 07:20 MCV 87 fl (84-94) 07/26/20 07:20 MCH 30 pg (28-32) 07/26/20 07:20 MCHC 34 % (32-34) 07/26/20 07:20 RDW 14.2 % (13.2-15.2) 07/26/20 07:20 Plt Count 160 K/mm3 (140-440) 07/26/20 07:20 Lymph % (Auto) 7.1 % (13.4-35.0) L 07/26/20 07:20 [place] % (Auto) 5.5 % (0.0-7.3) 07/26/20 07:20 Eos % (Auto) 0.0 % (0.0-4.3) 07/26/20 07:20 Baso % (Auto) 0.0 % (0.0-1.8) 07/26/20 07:20 Lymph # (Auto) 0.6 K/mm3 (1.2-5.4) L 07/26/20 07:20 [place] # (Auto) 0.5 K/mm3 (0.0-0.8) 07/26/20 07:20 Eos # (Auto) 0.0 K/mm3 (0.0-0.4) 07/26/20 07:20 Baso # (Auto) 0.0 K/mm3 (0.0-0.1) 07/26/20 07:20 Seg Neutrophils % 87.4 % (40.0-70.0) H 07/26/20 07:20 Seg Neutrophils # 7.3 K/mm3 (1.8-7.7) 07/26/20 07:20 PT 14.7 Sec. (12.2-14.9) 07/25/20 17:33 INR 1.15 (0.87-1.13) H 07/25/20 17:33 APTT 35.4 Sec. (24.2-36.6) 07/25/20 17:33 Sodium 135 mmol/L (137-145) L 07/26/20 07:20 Potassium 3.9 mmol/L (3.6-5.0) 07/26/20 07:20 Chloride 103.2 mmol/L (98-107) 07/26/20 07:20 Carbon Dioxide 24 mmol/L (22-30) 07/26/20 07:20 Anion Gap 12 mmol/L 07/26/20 07:20 BUN 15 mg/dL (9-20) 07/26/20 07:20 Creatinine 1.0 mg/dL (0.8-1.3) 07/26/20 07:20 Estimated GFR > 60 ml/min 07/26/20 07:20 BUN/Creatinine Ratio 15 % 07/26/20 07:20 Glucose 164 mg/dL (75-100) H 07/26/20 07:20 Lactic Acid 1.60 mmol/L (0.7-2.0) 07/25/20 14:55 Calcium 7.9 mg/dL (8.4-10.2) L 07/26/20 07:20 Total Bilirubin 1.30 mg/dL (0.1-1.2) H 07/26/20 04:54 AST 18 units/L (5-40) 07/26/20 04:54 ALT 21 units/L (7-56) 07/26/20 04:54 Alkaline Phosphatase 64 units/L (35-129) 07/26/20 04:54 Total Creatine Kinase 171 units/L (55-170) H 07/25/20 15:58 Total Protein 6.3 g/dL (6.3-8.2) D 07/26/20 04:54 Albumin 3.3 g/dL (3.9-5) L 07/26/20 04:54 Albumin/Globulin Ratio 1.1 % 07/26/20 04:54 Urine Color [place] (Yellow) 07/25/20 Unknown Urine Turbidity Slightly-cloudy (Clear) 07/25/20 Unknown Urine pH 8.0 (5.0-7.0) H 07/25/20 Unknown Ur Specific [place] 1.034 (1.003-1.030) H 07/25/20 Unknown Urine Protein >500 mg/dL (Negative) 07/25/20 Unknown Urine Glucose (UA) Neg mg/dL (Negative) 07/25/20 Unknown Urine Ketones 20 mg/dL (Negative) 07/25/20 Unknown Urine Blood Sm (Negative) 07/25/20 Unknown Urine Nitrite Neg (Negative) 07/25/20 Unknown Urine Bilirubin Sm (Negative) 07/25/20 Unknown Urine Ictotest Negative (Negative) 07/25/20 Unknown Urine Urobilinogen 4.0 mg/dL (<2.0) 07/25/20 Unknown Ur Leukocyte Esterase Neg (Negative) 07/25/20 Unknown Urine WBC (Auto) 3.0 /HPF (0.0-6.0) 07/25/20 Unknown Urine RBC (Auto) > 182.0 /HPF (0.0-6.0) 07/25/20 Unknown U Epithel Cells (Auto) < 1.0 /HPF (0-13.0) 07/25/20 Unknown Urine Mucus 3+ /HPF 07/25/20 Unknown Blood Type B POSITIVE 07/25/20 17:33 Antibody Screen Negative 07/25/20 17:33 Microbiology: Microbiology 07/25/20 14:55 Peripheral/Venous Blood Culture - Preliminary Culture in Progress 07/25/20 14:49 Peripheral/Venous Blood Culture - Preliminary Culture in Progress [place]/IV: Voiding Method Urinal Active Medications - Current Medications Current Medications: Generic Name Dose Route Start Last Admin Trade Name Freq PRN Reason Stop Dose Admin Acetaminophen 650 mg 07/26/20 06:55 Acetaminophen 325 Mg Tab PO Q6H PRN Fever >101 Famotidine 20 mg 07/25/20 22:00 07/26/20 09:01 Famotidine 20 Mg/2 Ml Inj IV 20 mg BID ALEJO Administration Sodium Chloride 1,000 mls @ 125 mls/hr 07/25/20 20:15 Nacl 0.9% 1000 Ml IV DIRECT ALEJO Piperacillin Sod/Tazobactam Sod 4.5 gm in 100 mls @ 200 mls/hr 07/25/20 22:00 07/26/20 06:17 Zosyn/Ns 4.5gm/100ml IV 200 mls/hr Q8HR ALEJO Administration Protocol Ketorolac Tromethamine 30 mg 07/26/20 06:55 07/26/20 09:01 Ketorolac 30 Mg/1 Ml Inj IV 07/31/20 06:54 30 mg Q6HR ALEJO Administration Metoclopramide HCl 10 mg 07/25/20 21:30 Metoclopramide 10 Mg/2 Ml Inj IV Q6H PRN Nausea And Vomiting Morphine Sulfate 2 mg 07/26/20 06:55 Morphine 2 Mg/1 Ml Inj IV Q4H PRN Pain , Severe (7-10) Ondansetron HCl 4 mg 07/26/20 06:55 Ondansetron 4 Mg/2 Ml Inj IV Q4H PRN Nausea And Vomiting Oxycodone/Acetaminophen 2 tab 07/26/20 07:30 Oxycodone /Acetaminophen 5-325mg Tab PO Q4H PRN Pain, Moderate (4-6) Sodium Chloride 10 ml 07/25/20 22:00 07/25/20 22:02 Sodium Chloride 0.9% 10 Ml Flush Syringe IV 10 ml BID ALEJO Administration Sodium Chloride 10 ml 07/25/20 21:30 Sodium Chloride 0.9% 10 Ml Flush Syringe IV PRN PRN LINE FLUSH Nutrition/Malnutrition Assess - Malnutrition Assessment Minimum of two criteria: No - Attestation Statement I have reviewed and agreed w/ Malnutrition eval & tx plan: Yes
[2020-07-27] MEDS: PIPERACIL/TAZOBACTA 4.5/NS 100 4.5 GM/100 ML VIAL IV SCH ×2 (05:45→14:24)
[2020-07-27] MEDS: KETOROLAC 30 MG/1 ML INJ IV SCH ×2 (05:46→11:25)
[2020-07-27 06:25] LABS: Hematocrit 35.8 % (35.5-45.6); Hemoglobin 12.1 gm/dl (11.8-15.2); Lymphocytes # (Auto) 0.9 K/mm3 (1.2-5.4); Lymphocytes % (Auto) 11.9 % (13.4-35.0); Mean Corpuscular HGB Conc 34 % (32-34); Mean Corpuscular Volume 87 fl (84-94); Monocytes # (Auto) 0.7 K/mm3 (0.0-0.8); Monocytes % (Auto) 9.2 % (0.0-7.3); Platelet Count 160 K/mm3 (140-440); Red Blood Count 4.12 M/mm3 (3.65-5.03); Red Cell Distribution Width 14.2 % (13.2-15.2)
[2020-07-27] MEDS: FAMOTIDINE 20 MG/2 ML INJ IV SCH (10:26)
--- NOTE | 2020-07-27 11:28 | Discharge Summary ---
Providers - Providers Date of Admission: 07/25/20 17:06 Date of discharge: 07/27/20 Attending physician: ALEXANDRA MOY MD 07/25/20 17:01 Consult to Physician [CONS] Urgent Comment: Consulting Provider: SARAH BENNETT Physician Instructions: Reason For Exam: sepsis Primary care physician: [employer]W [employer]PERATOR Hospitalization Reason for admission: Acute perforated appendicitis Condition: Serious Hospital course: 35 yo [place]-speaking male with no significant past medical history presents to the ED with c/o RLQ abd pain that began three days ago and worsened today. He has associated diarrhea. he states he is also having pain in the right testicle. he denies any n/v, constipation, urinary symptoms, penile discharge. he states he has not been sexually active recently. no pmhx. no allergies to meds. no past surgical history. Pain is about 10 on a scale of 1-10. Confined to the right lower quadrant and radiating to the right testicle. No fever. No chills. (1) Systemic inflammatory response syndrome Current Visit: Yes Status: Acute Plan to address problem: Patient has temperature 102.2 and heart rate of 102 consistent with Sirs IV fluids IV antibiotics. CBC in the morning (2) Acute perforated appendicitis Current Visit: Yes Status: Acute Plan to address problem: Patient is status post lap appendectomy for perforated appendicitis Patient started on broad-spectrum antibiotics Surgery follow-up (3) Testicular pain, unspecified Current Visit: Yes Status: Acute Qualifiers: Laterality: right Qualified Code(s): N50.811 - Right testicular pain Plan to address problem: Probably radiating pain from appendicitis (4) Polycythemia due to fall in plasma volume Current Visit: Yes Status: Acute Plan to address problem: IV fluids for now and recheck the CBC in the morning (5) Volume depletion Current Visit: Yes Status: Acute Plan to address problem: Urine specific gravity is 1.034 IV fluids for the time being Recheck CBC and BMP in a.m. (6) Hyponatremia Current Visit: Yes Status: Acute Plan to address problem: IV normal saline for now Recheck sodium in the morning (7) DVT prophylaxis Current Visit: Yes Status: Acute Plan to address problem: SCDs and GI prophylaxis Daily course 07/26/20 Patient is seen and examined. Patient is status post laparoscopic appendectomy for perforated appendicitis. Patient is doing good. Patient is seen and evaluated by surgeon. Will advance the diet this evening. Continue current management and antibiotic. Discharge planning in the morning when cleared by surgery. Recheck CBC in the morning 07/27/20 Patient is seen and examined. Patient is status post laparoscopic appendectomy for perforated appendicitis. Patient is doing good. Patient is seen and evaluated by surgeon. Surgery cleared the patient for discharge swerving to send the patient home with Levaquin 750 mg p.o. daily for 5 days and pain medication. Patient will follow up with surgery within a week. As stearns the diet slowly as directed. Condition at the time of discharge is stable. Discharged time 30 minutes Disposition: DC-01 TO HOME OR SELFCARE Time spent for discharge: 30 - Discharge Diagnoses (1) Acute abdominal pain in right lower quadrant Status: Acute Comment: Patient is status post lap appendectomy for perforated appendicitis Patient started on broad-spectrum antibiotics Surgery follow-up (2) Acute perforated appendicitis Status: Acute Comment: Patient is status post lap appendectomy for perforated appendicitis Patient started on broad-spectrum antibiotics Surgery follow-up as outpatient in 1 week (3) DVT prophylaxis Status: Acute Comment: Patient is ambulating. (4) Hyponatremia Status: Acute Comment: Hyponatremia resolved sodium is 135-139. Follow-up with primary care with repeat BMP in 1 week Core Measure Documentation - Palliative Care Palliative Care/ Comfort Measures: Not Applicable - Core Measures Any of the following diagnoses?: none Exam - Constitutional Vitals: Temp Pulse Resp BP Pulse Ox 98.0 F 59 L 16 101/63 97 07/27/20 07:21 07/27/20 07:21 07/27/20 07:21 07/27/20 07:21 07/27/20 07:21 General appearance: Present: no acute distress, well-nourished - EENT Eyes: Present: PERRL ENT: hearing intact, clear oral mucosa - Neck Neck: Present: supple, normal ROM - Respiratory Respiratory effort: normal Respiratory: bilateral: CTA - Cardiovascular Heart Sounds: Present: S1 & S2. Absent: rub, click - Extremities Extremities: pulses symmetrical, No edema Peripheral Pulses: within normal limits - Abdominal General gastrointestinal: Present: soft, non-tender, non-distended, normal bowel sounds Male genitourinary: Present: normal - Integumentary Integumentary: Present: clear, warm, dry - Musculoskeletal Musculoskeletal: gait normal, strength equal bilaterally - Psychiatric Psychiatric: appropriate mood/affect, intact judgment & insight - Neurologic Neurologic: CNII-XII intact, moves all extremities Plan Activity: advance as tolerated Diet: low carbohydrate, thickened liquids Wound: keep clean and dry Special Instructions: no heavy lifting Follow up with: PRIMARY CARE, [Primary Care Provider] - 3-5 Days SARAH BENNETT MD [Staff Physician] - 7 Days Prescriptions: levoFLOXacin [Levaquin] 750 mg PO QDAY 5 Days #5 tablet oxyCODONE /ACETAMINOPHEN [Percocet 5/325] 1 tab PO Q6HR PRN #14 tablet PRN Reason: Pain
--- NOTE | 2020-07-27 11:38 | Progress Note ---
Assessment and Plan POD#2 s/p lap appy for perforated appendicitis. Afebrile and stable. Drain removed. Can d/c today. Will complete 5 days of oral abx and call my office [phone] to make a follow up appointment to see in me in two weeks. Pt can shower and advance diet and activity as tolerated. Subjective Date of service: 07/27/20 Patient Reports: Positive: feels better, tolerating a regular diet (no acute events overnight.) Objective Vital Signs - 12hr 07/26/20 07/27/20 07/27/20 23:37 00:07 00:18 Temperature 98.3 F Pulse Rate 60 Respiratory 18 18 18 Rate Blood Pressure 106/66 O2 Sat by Pulse 95 Oximetry 07/27/20 07/27/20 05:19 07:21 Temperature 97.8 F 98.0 F Pulse Rate 56 L 59 L Respiratory 18 16 Rate Blood Pressure 103/69 101/63 O2 Sat by Pulse 97 97 Oximetry - General physical appearance well developed, well nourished, no distress, no pain - Respiratory normal expansion, normal respiratory effort - Abdomen soft, not distended, other (Drain with small amount of sero-sang fluid. incisions c/d/i, appropriatley tender to palpation. ) - Labs 07/27/20 04:53 07/26/20 07:20
[2020-07-27 12:00] VITALS: BP 113/63
== END 2020-07-27 15:00 | disposition home or self-care (01) ==
LOC: ED 14:23 → 3A 17:06 → 3B 20:20
PROVIDERS: ADMIT Internal Medicine; ATTEND Hospitalist
DX: K35.32 Acute appendicitis with perforation, localized peritonitis, and gangrene, without abscess (principal); R65.10 Systemic inflammatory response syndrome (SIRS) of non-infectious origin without acute organ dysfunction; N50.811 Right testicular pain; D75.1 Secondary polycythemia; E86.9 Volume depletion, unspecified; E87.1 Hypo-osmolality and hyponatremia; N43.3 Hydrocele, unspecified
CPT/HCPCS: 36415; 44970; 74177; 80048; 80053; 81001; 82140; 82550; 85025; 85610; 85730; 86850; 86900; 86901; 87040; 88304; 93975; 96365; 96366; 96375; 96376; 99291; A4217; G0378; J1100; J1170; J1885; J2270; J2405; J2543; J2704; J2710; J3010; J7030; J7120; Q9967; J0330